=== PATIENT | male | born 1990 | race Two or more races ===

== ENCOUNTER 2017-05-05 13:30 | Emergency (ER) | payer MEDICAID ==
[2017-05-05 14:53] VITALS: BP 140/84
== END 2017-05-05 17:38 | disposition home or self-care (01) ==
LOC: ED 13:30
DX: S51.811A Laceration without foreign body of right forearm, initial encounter (principal); W45.8XXA Other foreign body or object entering through skin, initial encounter; Y93.89 Activity, other specified; Y99.8 Other external cause status; Y92.89 Other specified places as the place of occurrence of the external cause
CPT/HCPCS: J2001; Q0092

== ENCOUNTER 2019-04-04 05:02 | Emergency (ER) | payer SELFPAY ==
[~2019-04-04] VITALS: Ht 185.4 cm; Wt 93.2 kg
[2019-04-04 05:07] VITALS: BP 123/86
== END 2019-04-04 06:28 | disposition home or self-care (01) ==
LOC: ED 05:02
DX: K08.89 Other specified disorders of teeth and supporting structures (principal)
CPT/HCPCS: J1885